=== PATIENT | female | born 1935 | race Caucasian/White ===

== ENCOUNTER → 2018-03-08 | Outpatient (CLI) | payer OTHER ==
[~2018-03-08] MED LIST: Aspirin EC81 MG PO; Daily Multiple1 EACH PO; Mobic15 MG PO; Omeprazole20 M1 PO; PYRI100 PO; Simvastatin20 MG PO; TRAM50 PO; VITAMIN C500 MG PO; VITAMIN D32000 UNIT PO
== END | disposition home or self-care (01) ==
LOC: PLD 10:33 → LAB SHORT 10:33
DX: D04.39 Carcinoma in situ of skin of other parts of face (principal); D04.61 Carcinoma in situ of skin of right upper limb, including shoulder
CPT/HCPCS: 88305